=== PATIENT | female | born 1960 | race African-American/Black ===

== ENCOUNTER 2020-02-10 08:58 | Outpatient (CLI) | payer OTHER ==
--- NOTE | 2020-02-10 10:53 | RAD ---
EXAM: XR Lumbar Spine 2 Or 3 View PROVIDED CLINICAL HISTORY: Chronic right-sided sciatica. No history of trauma. COMPARISON: None FINDINGS: 5 nonrib-bearing lumbar-type vertebral bodies are present. The vertebral body heights and interverteb ral disc spaces are within normal limits. Trace grade 1 anterolisthesis of L3 on L4 is present. Mild facet degenerative changes are seen in the lower lumbar spine. There is questionable lucency see n involving the lower most sacral segment just above the level of the coccyx which could represent a fracture; although, the exact age is indeterminate. Correlation for point tenderness is suggested. A large coarse calcification is seen overlying the central pelvis likely related to a large calcified uterine fibroid. IMPRESSION: 1. Subtle lucency with irregularity involving the lower most sacral segment just above the level of t he coccyx which could potentially represent a fracture. The exact age is indeterminate. Correlation for point tenderness is recommended. 2. Trace grade 1 anterolisthesis of L3 on L4. 3. Facet degenerative changes.
== END 2020-02-10 08:59 | disposition home or self-care (01) ==
LOC: MADRAD 08:58
PROVIDERS: ATTEND Family Medicine
DX: M54.41 Lumbago with sciatica, right side (principal); M47.816 Spondylosis without myelopathy or radiculopathy, lumbar region
CPT/HCPCS: 72100